=== PATIENT | female | born 1965 | race Hispanic/Latino ===

== ENCOUNTER → 2024-09-08 | Day surgery (SDC) | payer OTHER ==
[~2024-09-08] MED LIST: AMLODIPINE BESYL5 MG PO; CALCIUM600 MG PO; HYDROCHLOROTHIA25 MG PO; JARDIANCE10 MG PO; KETAMINE 50MG/5ML SYR ONE; LIDOCAINE HCL 2% LOCAL INJ 5 ML SDV VIAL INJ ONE; MICARDIS80 MG PO; PROPOFOL IV EMULSION 10 MG/ML 20 ML VIAL ONE; RYBELSUS14 MG PO; TRESIBA FL100 UNIT/1 SC; VITAMIN D3 COM1 EACH PO
[2024-09-08] MEDS: LACTATED RINGER'S 1,000 ML ONE (14:15)
[2024-09-08 18:40] VITALS: BP 145/69; PULSE 65; RESP 16; TEMP 97.8; O2SAT 99
[2024-09-08 19:27] LABS: WBC,FECAL (FECAL LACTOFERRIN) NEGATIVE (NEGATIVE)
[2024-09-08 19:42] LABS: CDIFF AG QUIK CHEK NEGATIVE (NEGATIVE); CDIFF TOX QUIK CHEK NEGATIVE (NEGATIVE)
[2024-09-09 07:41] LABS: C-REACTIVE PROTEIN 6 mg/L (0-10)
[2024-09-26 06:34] LABS: TISSUE TRANSGLUTAMINASE IGA AB <2
[2024-09-26 06:35] LABS: ENDOMYSIAL ANTIBODIES, IGA Negative; IMMUNOGLOBULIN A 214 (81-463)
== END | disposition home or self-care (01) ==
LOC: OR 13:28
PROVIDERS: ATTEND Internal Medicine Gastroenterology
DX: Z12.11 Encounter for screening for malignant neoplasm of colon (principal); D12.4 Benign neoplasm of descending colon; K63.89 Other specified diseases of intestine; K64.8 Other hemorrhoids; I10 Essential (primary) hypertension; E11.9 Type 2 diabetes mellitus without complications; M06.9 Rheumatoid arthritis, unspecified; M19.90 Unspecified osteoarthritis, unspecified site; Z01.810 Encounter for preprocedural cardiovascular examination; Z79.84 Long term (current) use of oral hypoglycemic drugs; Z79.4 Long term (current) use of insulin
CPT/HCPCS: 45380; 45385; 82784; 83516; 83630; 83993; 86140; 86256; 87045; 87177; 87324; 87328; 87449; 93005; J2003; J2704; J7121